=== PATIENT | female | born 1990 | race Two or more races ===

== ENCOUNTER 2023-07-11 19:39 | Emergency (ER) | payer MEDICAID, OTHER ==
[~2023-07-11] VITALS: Ht 157.5 cm; Wt 86.0 kg
[2023-07-11 20:11] VITALS: BP 137/79; PULSE 104; RESP 16; TEMP 98.7; O2SAT 98
[2023-07-11] MEDS ORDERED: IBUP-1455 PO (22:33)
== END 2023-07-11 23:17 | disposition home or self-care (01) ==
LOC: ER 19:39
DX: S82.891A Other fracture of right lower leg, initial encounter for closed fracture (principal); X58.XXXA Exposure to other specified factors, initial encounter; Y93.01 Activity, walking, marching and hiking; Y92.89 Other specified places as the place of occurrence of the external cause; Y99.8 Other external cause status
CPT/HCPCS: 29515; 73610